=== PATIENT | female | born 1945 ===

== ENCOUNTER 2018-12-25 07:00 | Inpatient (IN) | payer OTHER ==
[~2018-12-25] VITALS: Ht 167.6 cm; Wt 93.4 kg
[~2018-12-25 07:00] MED LIST: LIPITOR20 MG PO; RAMIPRIL2.5 MG PO; VERAPAMIL ER180 MG PO
[2018-12-25] MEDS ORDERED: CARDIZEM CD120 MG PO (09:00)
[2018-12-25] MEDS ORDERED: LIPITO PO (09:00)
[2018-12-25] MEDS ORDERED: VERAPAMIL ER120 MG PO (09:56)
[2018-12-25] MEDS ORDERED: XALATAN (09:57)
[2018-12-25] MEDS ORDERED: LIPITOR PO (09:58)
== END 2019-01-04 20:48 | DRG 470 ==
LOC: O/R 01-02 06:48 → SURH 01-02 06:48 → EDBD 01-02 07:00 → SURH 01-02 10:00
PROVIDERS: ADMIT Orthopaedic Surgery
PROC: 0T9B70Z Drainage of Bladder with Drainage Device, Via Natural or Artificial Opening (ICD-10-PCS; 2019-01-02)
PROC: 0SRD0J9 Replacement of Left Knee Joint with Synthetic Substitute, Cemented, Open Approach (ICD-10-PCS; principal; 2019-01-02 10:00)
DX: M17.12 Unilateral primary osteoarthritis, left knee (principal); D62 Acute posthemorrhagic anemia; E53.0 Riboflavin deficiency; I10 Essential (primary) hypertension; E66.09 Other obesity due to excess calories

== ENCOUNTER 2019-05-16 07:17 | Outpatient (CLI) | payer OTHER ==
[~2019-05-16 07:17] MED LIST changes: +CARDIZEM CD120 MG PO; +LIPITO PO; +LIPITOR PO; +VERAPAMIL ER120 MG PO; +XALATAN
== END 2019-05-16 07:21 | disposition home or self-care (01) ==
LOC: NUCLEAR 07:17
DX: I87.2 Venous insufficiency (chronic) (peripheral) (principal); M17.12 Unilateral primary osteoarthritis, left knee; I10 Essential (primary) hypertension; M54.5 Low back pain

== ENCOUNTER 2022-03-08 07:34 | Outpatient (CLI) | payer OTHER | END 2022-03-08 07:46 | disposition home or self-care (01) | LOC: TOM 07:34 | PROVIDERS: ATTEND Internal Medicine Hematology & Oncology | DX: Z12.31 Encounter for screening mammogram for malignant neoplasm of breast (principal); N63.0 Unspecified lump in unspecified breast; N64.4 Mastodynia; D55.0 Anemia due to glucose-6-phosphate dehydrogenase [G6PD] deficiency; D50.8 Other iron deficiency anemias; D51.1 Vitamin B12 deficiency anemia due to selective vitamin B12 malabsorption with proteinuria; D51.0 Vitamin B12 deficiency anemia due to intrinsic factor deficiency; I10 Essential (primary) hypertension; E04.2 Nontoxic multinodular goiter; K56.600 Partial intestinal obstruction, unspecified as to cause; R19.5 Other fecal abnormalities ==

== ENCOUNTER → 2023-09-26 08:51 | Outpatient (CLI) | payer OTHER ==
[2023-09-26 10:26] LABS: HEMATOCRIT 28.9 % (36.0-45.00); HEMOGLOBIN 9.8 g/dL (12.0-15.00); MEAN CELL VOLUME 89.5 fL (80.00-100.00); MEAN CORPUSCULAR HEMOGLOBIN 30.2 pg (27.00-32.0); MEAN CORPUSCULAR HGB CONC 33.7 g/dl (32.0-36.0); PLATELET COUNT 275 K/uL (150-450); RED BLOOD COUNT 3.23 M/uL (4.00-6.00); RED CELL DISTRIBUTION WIDTH 13.3 % (11.5-14.5)
[2023-09-26 10:50] LABS: ALBUMIN 3.1 gm/dL (3.4-5.0); BILIRUBIN TOTAL 0.45 mg/dL (0.3-1.2); CALCIUM 9.2 mg/dL (8.5-10.1); CREATININE SERUM 0.92 mg/dL (0.55-1.02); GFR 59.04; GLOBULINA 3.9 G/DL (2.4-3.5); POTASSIUM 4.43 mEq/L (3.5-5.1)
[2023-09-26 11:50] LABS: FOLIC ACID > 20.00 ng/ml (4.78-20)
[2023-09-28 14:54] LABS: MANUAL PLATELET COUNT 494
[2023-09-28 14:55] LABS: PLATELET ESTIMATE INCREASED (NORMAL)
== END | disposition home or self-care (01) ==
LOC: LAB 08:51
PROVIDERS: ATTEND Internal Medicine Hematology & Oncology
DX: D50.8 Other iron deficiency anemias (principal); R79.9 Abnormal finding of blood chemistry, unspecified; I10 Essential (primary) hypertension; R74.02 Elevation of levels of lactic acid dehydrogenase [LDH]; K76.89 Other specified diseases of liver; D51.8 Other vitamin B12 deficiency anemias; E55.9 Vitamin D deficiency, unspecified; C50.919 Malignant neoplasm of unspecified site of unspecified female breast; R97.8 Other abnormal tumor markers; R97.0 Elevated carcinoembryonic antigen [CEA]; D55.0 Anemia due to glucose-6-phosphate dehydrogenase [G6PD] deficiency; D51.1 Vitamin B12 deficiency anemia due to selective vitamin B12 malabsorption with proteinuria; D51.0 Vitamin B12 deficiency anemia due to intrinsic factor deficiency; E04.2 Nontoxic multinodular goiter; N60.81 Other benign mammary dysplasias of right breast; N63.11 Unspecified lump in the right breast, upper outer quadrant